=== PATIENT | female | born 1970 | race Caucasian/White ===

== ENCOUNTER 2019-01-24 21:17 | Observation (INO) ==
[2019-01-24] MEDS ORDERED: Ondansetron 4 MG/2 ML VIAL IVP PRN (23:37)
[2019-01-24] MEDS ORDERED: *HR* Promethazine 25 MG/ML VIAL IVP PRN (23:37)
[2019-01-24] MEDS ORDERED: Acetaminophen/Butalbital/CaffeineTABLET PO ONE (23:39)
[2019-01-24] MEDS ORDERED: Ringers Solution, Lactated 1,000 ML IVC SCH (23:45)
[2019-01-25] MEDS ORDERED: Sennosides/Docusate Sodium TABLET PO SCH (00:43)
[2019-01-25] MEDS ORDERED: tiZANidine 4 MG TABLET PO SCH (00:43)
[2019-01-25] MEDS: *HR* OxyCODONE/APAP 10/325 TABLET PO PRN ×3 (03:46→17:08)
[2019-01-25 06:25] LABS: Basophils % 0.4 %; Eosinophils # 0.4 K/mcL (0.0-0.6); Hematocrit 40.8 % (35.3-44.9); Hemoglobin 13.5 g/dL (11.5-15.4); Immature Granulocytes % 0.2 % (0-4); Lymphocytes # 3.8 K/mcL (0.6-4.6); Lymphocytes % 37.5 %; Mean Corpuscular HGB Conc 33.1 g/dL (31.6-35.5); Mean Corpuscular Hemoglobin 28.8 pg (28.0-33.3); Mean Platelet Volume 11.4 fL (9.4-12.4); Monocytes # 0.6 K/mcL (0.0-1.3); Monocytes % 6.2 %; Neutrophils # 5.3 K/mcL (1.6-8.9); Platelet Count 252 K/mcL (140-400); Red Blood Count 4.69 M/mcL (3.82-4.97); Red Cell Distribution Width 13.7 % (11.5-14.5); Segmented Neutrophils % 51.7 %; White Blood Count 10.2 K/mcL (4.3-11.1)
[2019-01-25 06:29] LABS: Prothrombin Time 11.6 Seconds (9.4-12.1)
[2019-01-25 06:32] LABS: Activated Partial Thrombo Time 33.6 Seconds (26.0-36.0)
[2019-01-25] MEDS: Gabapentin 300 MG CAPSULE PO SCH ×2 (08:03→16:09)
[2019-01-25 08:40] LABS: BUN/Creatinine Ratio 20 (6-26); Blood Urea Nitrogen 17 mg/dL (6-20); Calcium 8.8 mg/dL (8.6-10.3); Carbon Dioxide 32 mEq/L (23-29); Chloride 103 mEq/L (98-107); Glucose 146 mg/dL (70-105); Magnesium 1.8 mg/dL (1.6-2.6); Osmolality,Calculated 298 (280-300); Phosphorous 4.4 mg/dL (2.7-4.5); Potassium 3.4 mEq/L (3.5-5.1); Sodium 142 mEq/L (136-145); eGFR For African Americans > 60 (> 60); eGFR For Non-African Americans > 60 (> 60)
[2019-01-25] MEDS ORDERED: Fluticasone Propionate Nasal 50 MCG/SPRAY BOTTLE NS SCH (09:00)
[2019-01-25] MEDS ORDERED: Aspirin Enteric Coated 81 MG Tablet PO SCH (09:00)
[2019-01-25] MEDS ORDERED: Loratadine 10 MG TABLET PO SCH (09:00)
[2019-01-25 15:26] VITALS: BP 90/49
== END 2019-01-25 18:32 | disposition home or self-care (01) ==
LOC: 3ANU → SUATTDRO 23:27
PROVIDERS: ADMIT Internal Medicine; ATTEND Internal Medicine